=== PATIENT | male | born 1995 | race Caucasian/White ===

== ENCOUNTER 2017-03-26 22:06 | Emergency (ER) | payer OTHER ==
[2017-03-27 01:00] VITALS: BP 121/71
== END 2017-03-27 01:00 | disposition home or self-care (01) ==
LOC: ED 22:06
DX: H00.016 Hordeolum externum left eye, unspecified eyelid (principal); G51.0 Bell's palsy; H10.9 Unspecified conjunctivitis
CPT/HCPCS: J7512

== ENCOUNTER 2018-12-03 20:04 | Emergency (ER) | payer OTHER ==
[~2018-12-03] VITALS: Ht 160 cm; Wt 76.7 kg
[2018-12-03 20:08] VITALS: Ht 160 cm; Wt 76.7 kg
[2018-12-03 22:44] VITALS: BP 148/95
== END 2018-12-03 22:44 | disposition home or self-care (01) ==
LOC: ED 20:04
DX: H92.01 Otalgia, right ear (principal)